=== PATIENT | female | born 1980 | race Caucasian/White ===

== ENCOUNTER 2017-04-09 17:35 | Observation (INO) | payer MEDICAID ==
[~2017-04-09] VITALS: Ht 177.8 cm; Wt 94.8 kg
--- NOTE | 2017-04-09 17:40 | NUR ---
Patient ambulated to bed 11. RN evaluating patient at bedside.
[2017-04-09 17:41] VITALS: BP 115/82
--- NOTE | 2017-04-09 17:58 | NUR ---
37 F BIB SIGNICANT OTHER FOR C/O VOMITING X APPROX 20 EPISODES SINCE LAST NIGHT WITH 10/10 "SHARP" NON-RADIATING BL LOWER BACK PAIN AND HEAD; DENIES TRAUMA OR ANY RECENT FALLS; LAST BM LAST WEEK; PT DENIES ANY BLOOD IN EMESIS;SKIN IS PINK/WARM/DRY; AOX4 WITH EVEN AND STEADY GAIT; RR ARE EVEN AND UNLABORED; PATIENT POSITIONED FOR COMFORT; BED DOWN. ER MD MADE AWARE OF PT STATUS.
[2017-04-09] MEDS ORDERED: KETOROLAC 30 MG/ML VIAL IVP ONE ×2 (18:00→20:10)
[2017-04-09] MEDS ORDERED: METOCLOPRAMIDE 10 MG/2 ML INJ VIAL IVP ONE (18:00)
[2017-04-09] MEDS ORDERED: NACL 0.9% 1,000 ML IV ONE (18:00)
[2017-04-09] MEDS ORDERED: MORPHINE SULFATE 4 MG/ML SYR IVP ONE (18:50)
--- NOTE | 2017-04-09 19:06 | NUR ---
EMENA ADMINISTERED PER ER MD MAHAJAN ORDER; PT TOLERATED WELL
--- NOTE | 2017-04-09 19:10 | NUR ---
Pt report given to Leonila LEE. Transfer of care at this time.
--- NOTE | 2017-04-09 19:25 | NUR ---
report received from ROSA SANTOS
--- NOTE | 2017-04-09 19:35 | NUR ---
PT HAD BM AT BEDSIDE COMMODE. ENEMA WITH GOOD EFFECT.
[2017-04-09] MEDS ORDERED: NACL 0.9% 500 ML IV ONE (20:08)
[2017-04-09] MEDS ORDERED: ONDANSETRON 4 MG/2 ML VIAL IVP ONE (20:10)
[2017-04-09 20:26] LABS: BASOPHILS # (AUTO) 0.5 K/uL (0.00-0.22); EOSINOPHILS # (AUTO) 0.1 K/uL (0-0.4); HEMATOCRIT 39.9 % (36-48); HEMOGLOBIN 12.9 g/dL (12.0-16.0); LYMPHOCYTES # (AUTO) 2.7 K/uL (2.5-16.5); MEAN CORPUSCULAR HEMOGLOBIN 29 pg (27-31); MEAN CORPUSCULAR HGB CONC 32 g/dL (33-37); MEAN CORPUSCULAR VOLUME 88 fL (80-94); MONOCYTES # (AUTO) 0.4 K/uL (0.8-1.0); NEUTROPHILS # (AUTO) 1.9 K/uL (1.8-7.7); PLATELET COUNT (AUTO) 310 K/uL (140-450); RED BLOOD CELL COUNT(AUTO) 4.52 MIL/uL (4.20-5.40); RED CELL DISTRIBUTION WIDTH 14.3 % (11.6-13.7); WHITE BLOOD COUNT (AUTO) 5.6 K/uL (4.8-10.8)
[2017-04-09 20:45] LABS: ANION GAP 11.7 (8-16); CARBON DIOXIDE 30.2 mmol/L (21-32); POTASSIUM 3.9 mmol/L (3.5-5.1)
[2017-04-09 20:51] LABS: ALBUMIN 3.9 g/dL (3.4-5.0); TOTAL BILIRUBIN 0.2 mg/dL (0.0-1.0)
[2017-04-09] MEDS: NACL 0.9% 1,000 ML IV SCH ×2 (21:50→22:15)
[2017-04-09] MEDS ORDERED: SODIUM PHOSPHATE 118 ML ENEM RC PRN (21:55)
[2017-04-09] MEDS ORDERED: ONDANSETRON 4 MG/2 ML VIAL IVP PRN (21:55)
[2017-04-09] MEDS ORDERED: HYDROcodone/APAP 5/325 MG 1 TAB TAB PO PRN ×2 (21:55)
[2017-04-09] MEDS ORDERED: ACETAMINOPHEN 650 MG SUPP RC PRN (21:55)
[2017-04-09] MEDS ORDERED: LACTULOSE 20 GM/30 ML UDC PO ONE (21:55)
[2017-04-09] MEDS ORDERED: BISACODYL 10 MG SUPP RC ONE (21:55)
[2017-04-09] MEDS ORDERED: cloNIDine 0.1 MG TAB PO PRN (21:55)
[2017-04-09] MEDS ORDERED: IPRATROPIUM 0.02% 0.5 MG/2.5 ML NEBU INH PRN (21:55)
[2017-04-09] MEDS ORDERED: MAGNESIUM OXIDE 400 MG TAB PO PRN (21:55)
[2017-04-09] MEDS ORDERED: ZOLPIDEM 5 MG TAB PO PRN (21:55)
[2017-04-09] MEDS ORDERED: MAG SULF 2000 MG/WATER PREMIX 50 ML IV PRN (21:55)
[2017-04-09] MEDS ORDERED: DOCUSATE SODIUM 250 MG GELCAP PO PRN (21:55)
[2017-04-09] MEDS ORDERED: ALBUTEROL 0.083% 2.5 MG/3 ML NEBU INH PRN (21:55)
[2017-04-09] MEDS ORDERED: ACETAMINOPHEN 325 MG TAB PO PRN (21:55)
[2017-04-09] MEDS ORDERED: diphenhydrAMINE 50 MG/ML VIAL IVP PRN (21:55)
[2017-04-09] MEDS ORDERED: BISACODYL 10 MG SUPP RC PRN (21:55)
[2017-04-09] MEDS ORDERED: ALUMINUM HYD/MAG/SIMETHICONE 30 ML UDC PO PRN (21:55)
[2017-04-09] MEDS ORDERED: POTASSIUM CHLORIDE 10 MEQ TABER PO PRN (21:55)
[2017-04-09] MEDS ORDERED: guaiFENesin DM 200/20 MG-10 ML 10 ML UDC PO PRN (21:55)
[2017-04-09] MEDS ORDERED: POTASSIUM CHLORIDE 40 MEQ, LIDOCAINE 1% 25 MG in NACL 0.9% 250 ML IV PRN (21:55)
[2017-04-09] MEDS ORDERED: LORazepam 2 MG/ML VIAL IVP PRN (21:55)
[2017-04-09 22:10] VITALS: BP 117/73
--- NOTE | 2017-04-09 22:10 | NUR ---
PATIENT ADMITTED WITH DEHYDRATION AND CONSTIPATION PATIENT IS AWAKE ALERT ORIENTED AND RESTING IN BED SKIN IS INTACT HAS MULTIPLE BODY TATTOES. ORIENTATION GIVEN ON ROOM AND CALL LIGHT SYSTEM WELL VISITING HOURS.PLAN OF CARE EXPLAINED TO THE PATIENT. CALL LIGHT WITHIN REACH WILL CONTINUE TO MONITOR.
--- NOTE | 2017-04-09 22:10 | NUR ---
Patient will be admitted to care of DR ELIAS. Admited to MED SURG. Will go to [id number]. Belongings list completed. Report to ROSA GONZALEZ.
--- NOTE | 2017-04-09 22:10 | NUR ---
[facility] COLLECTED AND SEND TO THE LAB.
--- NOTE | 2017-04-09 22:28 | NUR ---
I ADMINISTERED PATIENT MEDICATION ORDERED LACTULOSE AND DULCOLAX WILL ASESS EFFECTIVENESS.
[2017-04-09] MEDS: MORPHINE SULFATE 2 MG/ML SYR IVP PRN (22:44)
--- NOTE | 2017-04-09 22:44 | NUR ---
PATIENT WAS MEDICATED WITH MORPHINE 2MG IVP FOR SEVERE PAIN PATIENT STATES SHE IS HAVING PAIN TO HER LOWER BACK 10/ PATIENT DENIES ANY PAIN TO HER ABDOMEN.WILL CONTINUE TO MONITOR.
--- NOTE | 2017-04-09 23:59 | NUR ---
I CALLED MD RIGGINS FOR A DIET ORDER HE ORDERED CLEAR LIQUID DIET FOR THE PATIENT.
--- NOTE | 2017-04-10 00:49 | NUR ---
PATIENT IS CURRENTLY RESTING COMFORTABLY IN BED AT THIS TIME,IVF INFUSING WELL,AND PATIENT IS CURRENTLY TOLERATING CLEAR LIQUID DIET. PATIENT SAID SHE HAD A LOOSE BM A FEW MINUTES AGO.CALL LIGHT WITHIN REACH WILL CONTINUE TO MONITOR.
--- NOTE | 2017-04-10 02:00 | NUR ---
Patient's Plan of Care was discussed and reviewed with BITUMEN PLANT OPERATOR: LISA FIELDS.
--- NOTE | 2017-04-10 02:52 | NUR ---
PATIENT IS SLEEPING IN BED WILL CONTINUE TO MONITOR.
--- NOTE | 2017-04-10 05:46 | NUR ---
PATIENT STABLE SLEEPING IN BED.IVF INFUSING WELL IV SITE PATENT.
--- NOTE | 2017-04-10 06:45 | NUR ---
IV LEAKING TO LT AC SO IT WAS DISCONTINUED AND A NEW IV LINE WAS RESTARTED TO LEFT FOREARM G#22 AT FIRST ATTEMPT WITH GOOD BLOOD RETURN.IVF INFUSING WELL.CALL LIGHT WITHIN REACH.
[2017-04-10] MEDS: MORPHINE SULFATE 2 MG/ML SYR IVP PRN ×2 (06:56→12:21)
[2017-04-10 07:02] LABS: BASOPHILS # (AUTO) 0.2 K/uL (0.00-0.22); BASOPHILS % (AUTO) 2.3 % (0.0-2.0); EOSINOPHILS % (AUTO) 0.7 % (0.0-4.0); HEMATOCRIT 38.5 % (36-48); HEMOGLOBIN 12.6 g/dL (12.0-16.0); LYMPHOCYTES # (AUTO) 1.5 K/uL (2.5-16.5); LYMPHOCYTES % (AUTO) 20.9 % (20.5-51.1); MEAN CORPUSCULAR HEMOGLOBIN 29 pg (27-31); MEAN CORPUSCULAR HGB CONC 33 g/dL (33-37); MEAN CORPUSCULAR VOLUME 89 fL (80-94); MONOCYTES # (AUTO) 0.5 K/uL (0.8-1.0); MONOCYTES % (AUTO) 6.9 % (1.7-9.3); NEUTROPHILS # (AUTO) 4.7 K/uL (1.8-7.7); NEUTROPHILS % (AUTO) 69.2 % (42.2-75.2); PLATELET COUNT (AUTO) 287 K/uL (140-450); RED BLOOD CELL COUNT(AUTO) 4.33 MIL/uL (4.20-5.40); WHITE BLOOD COUNT (AUTO) 6.9 K/uL (4.8-10.8)
--- NOTE | 2017-04-10 07:40 | NUR ---
PATIENT IS CURRENTLY RESTING IN BED WATCHING TV,IVF INFUSING WELL.REPORT ENDORSED TO ROSA AGEE AT BEDSIDE ENDORSED TO ROSA AGEE THAT I RESTARTED IVF ON THE PATIENT AND THAT PATIENT WAS MEDICATED FOR PAIN.I ENDORSED ALSO THAT PATIENT HAD TWO BOWEL MOVEMENTS DURING THE NIGHT.ROSA AGEE WILL RESUME CARE.
--- NOTE | 2017-04-10 07:41 | NUR ---
RECEIVED REPORT FROM PATIENT SERVICE ASSOCIATE NURSE LISA AT BEDSIDE FOR CONTINUITY OF CARE. PT IS AWAKE AND ORIENTED. INTRODUCED SELF AND UPDATED BOARD. WILL CONTINUE WITH CURRENT PLAN OF CARE AND MONITOR PT.
[2017-04-10 07:43] LABS: ALBUMIN 3.5 g/dL (3.4-5.0); CARBON DIOXIDE 25.7 mmol/L (21-32); CREATININE 0.9 mg/dL (0.6-1.3); MAGNESIUM 1.6 mg/dL (1.8-2.4); POTASSIUM 3.7 mmol/L (3.5-5.1); TOTAL BILIRUBIN 0.5 mg/dL (0.0-1.0)
[2017-04-10 08:00] VITALS: BP 120/78
[2017-04-10] MEDS: NACL 0.9% 1,000 ML IV SCH (10:08)
--- NOTE | 2017-04-10 10:08 | NUR ---
IV BAG OF 1,000ML NS COMPLETE. STARTED NEW BAG OF NS 1,000ML AT 122ML/HR.
--- NOTE | 2017-04-10 10:31 | NUR ---
PATIENT HAS BEEN SCREENED AND CATEGORIZED HIGH NUTRITION RISK. PATIENT WILL BE SEEN WITHIN 1-2 DAYS OF ADMISSION. 04/10/17-04/11/[address]
--- NOTE | 2017-04-10 14:30 | NUR ---
CHECKED ON PT IN ROOM. PT'S FRIEND IS AT BEDSIDE. PT REPORTED HAVING WATERY STOOL. INFORMED PT TO REPORT IF ANY BRIGHT RED BLOOD IN STOOL IS OBSERVED. PT STATED SHE IS UNABLE TO EAT LUNCH DUE TO NAUSEA. DENIES VOMITING AND PAIN. WILL CONTINUE TO MONITOR.
--- NOTE | 2017-04-10 14:35 | NUR ---
ELLIOTT NOTE PATIENT STILL ON OBSERVATION STATUS. RECEIVED A CALL FROM [facility] # [phone] EXT [phone] REQUESTING FOR THE ER DR'S NOTES AND H&P TO BE FAXED TO [facility]. ER 'S NOTES AND H&P FAXED TO [facility] [phone] # [phone] ELLIOTT C[facility] EXT [phone].
[2017-04-10] MEDS ORDERED: ACET-2869 PO ×2 (15:16→15:18)
[2017-04-10] MEDS ORDERED: IBUP-2213 PO (15:19)
[2017-04-10] MEDS ORDERED: BISA5ECT45 PO (15:27)
[2017-04-10] MEDS ORDERED: DOCU-299 PO (15:30)
[2017-04-10] MEDS ORDERED: LACT10SO1 PO (15:31)
[2017-04-10] MEDS ORDERED: OMEP20TC12 PO (15:35)
[2017-04-10] MEDS ORDERED: ONDA4TAB PO (15:37)
[2017-04-10] MEDS ORDERED: PNEUMOCOCCAL VACCINE 23 MCG/0.5 ML VIAL IMVAC SCH (16:09)
--- NOTE | 2017-04-10 16:45 | NUR ---
1645 IV NS STOPPED.
--- NOTE | 2017-04-10 16:45 | NUR ---
PT D/C'D TO GO HOME. D/C INSTRUCTIONS GIVEN AND FORMS SIGNED. EDUCATION ON PRESCRIPTION GIVEN AND SIDE EFFECTS. PT VERBALIZED UNDERSTANDING. PNA VACCINE GIVEN. PT TOLERATED WELL. IV REMOVED FROM LEFT FA 22#. IV CATHETER TIP INTACT. DRESSING APPLIED AND PRESSURE TO SITE. NO BLEEDING NOTED. ID BAND REMOVED. PT CHANGED IN OWN CLOTHES AND LEFT WITH ALL PERSONAL BELONGINGS. PT LEFT UNIT VIA WHEELCHAIR ACCOMPANIED BY SIGNIFICANT OTHER AND RN. PT LEFT IN STABLE CONDITION.
[2017-04-11] MEDS ORDERED: TOPIRAMATE 25 MG TAB PO SCH (09:00)
[2017-04-11] MEDS ORDERED: QUEtiapine FUMARATE 25 MG TAB PO SCH (09:00)
== END 2017-04-10 16:45 | disposition home or self-care (01) ==
LOC: MED 17:35 → MTU 21:50
PROVIDERS: ADMIT Hospitalist; ATTEND Hospitalist
DX: K59.00 Constipation, unspecified (principal); F31.9 Bipolar disorder, unspecified
CPT/HCPCS: 36415; 80053; 83690; 83735; 85025; 87081; 90471; 90732; 96361; 96374; 96375; 96376; 99285; G0378; J1885; J2270; J2405; J2765; J7030

== ENCOUNTER 2017-07-03 17:02 | Emergency (ER) | payer MEDICAID ==
[~2017-07-03] VITALS: Ht 177.8 cm; Wt 99.8 kg
[~2017-07-03 17:02] MED LIST: ACET-2869 PO; BISA5ECT45 PO; DOCU-299 PO; IBUP-2213 PO; LACT10SO1 PO; OMEP20TC12 PO; ONDA4TAB PO
[2017-07-03 17:24] VITALS: BP 133/80
[2017-07-03] MEDS ORDERED: NACL 0.9% 1,000 ML IV SCH (18:30)
[2017-07-03] MEDS ORDERED: FAMOTIDINE 20 MG/2 ML VIAL IVP ONE (18:30)
[2017-07-03] MEDS ORDERED: KETOROLAC 30 MG/ML VIAL IVP ONE (18:30)
[2017-07-03] MEDS ORDERED: ONDANSETRON 4 MG/2 ML VIAL IVP ONE (18:30)
[2017-07-03 18:41] LABS: BASOPHILS # (AUTO) 0.3 K/uL (0.00-0.22); EOSINOPHILS # (AUTO) 0.1 K/uL (0-0.4); HEMATOCRIT 42.1 % (36-48); HEMOGLOBIN 13.6 g/dL (12.0-16.0); LYMPHOCYTES # (AUTO) 1.7 K/uL (2.5-16.5); MEAN CORPUSCULAR HEMOGLOBIN 29 pg (27-31); MEAN CORPUSCULAR HGB CONC 32 g/dL (33-37); MEAN CORPUSCULAR VOLUME 91 fL (80-94); MONOCYTES # (AUTO) 0.4 K/uL (0.8-1.0); NEUTROPHILS # (AUTO) 2.2 K/uL (1.8-7.7); PLATELET COUNT (AUTO) 285 K/uL (140-450); RED BLOOD CELL COUNT(AUTO) 4.62 MIL/uL (4.20-5.40); RED CELL DISTRIBUTION WIDTH 15.2 % (11.6-13.7); WHITE BLOOD COUNT (AUTO) 4.7 K/uL (4.8-10.8)
[2017-07-03 18:43] LABS: APPEARANCE,URINE CLEAR (CLEAR); BILIRUBIN,URINE NEGATIVE (NEGATIVE); BLOOD, URINE NEGATIVE (NEGATIVE); COLOR,URINE YELLOW (YELLOW); LEUKOCYTE ESTERASE ,URINE NEGATIVE (NEGATIVE); NITRITE, URINE NEGATIVE (NEGATIVE); PH,URINE 6.5 (5.0-9.0); UGLUCOSE NEGATIVE (NEGATIVE)
--- NOTE | 2017-07-03 18:50 | NUR ---
37/F C/O CONSTIPATION AND ABDOMINAL PAIN RADIATING TO BACK X11D, VOMITING TODAY. DENIES N/V/D; SKIN IS PINK/WARM/DRY; AAOX4 WITH EVEN AND STEADY GAIT; LUNGS CLEAR BL; PT DENIES ANY FEVER, CP, SOB, OR COUGH AT THIS TIME; PATIENT STATES PAIN OF 10/10 AT THIS TIME; PATIENT POSITIONED FOR COMFORT; HOB ELEVATED; BEDRAILS UP X2; BED DOWN. ER MD MADE AWARE OF PT STATUS.
[2017-07-03 19:08] LABS: ANION GAP 14.2 (8-16); CARBON DIOXIDE 25.1 mmol/L (21-32); POTASSIUM 3.3 mmol/L (3.5-5.1)
[2017-07-03 19:09] LABS: ALBUMIN 3.8 g/dL (3.4-5.0); CREATININE 1.1 mg/dL (0.6-1.3); TOTAL BILIRUBIN 0.3 mg/dL (0.0-1.0)
--- NOTE | 2017-07-03 19:10 | NUR ---
Pt report given to ROSA NEWMAN. Transfer of care at this time.
[2017-07-03] MEDS ORDERED: LACTULOSE 20 GM/30 ML UDC PO ONE (19:45)
[2017-07-03] MEDS ORDERED: POTASSIUM CHLORIDE 20% 40 MEQ/15 ML UDC PO ONE (19:50)
[2017-07-03] MEDS ORDERED: LACTULOSE 20 GM/30 ML UDC ONE (20:52)
[2017-07-03] MEDS ORDERED: MAGNESIUM HYDROXIDE 2400 MG/30 ML UDC PO ONE (21:15)
--- NOTE | 2017-07-03 21:48 | NUR ---
Note yoana in EDM - 07/03/17 at 2151 by JONO ERROR NOTE ON NS ADMINISTRATION. X1, 1L BAG OF NS ADMINISTERED FROM 193 TO 2014. DUPLICATE ADMINISTARTOIN ON AUG WITH ANOTHER ADMINISTRATOIN OF NS AT 1931. PT RECIEVED ONLY 1 L OF NS.
--- NOTE | 2017-07-03 22:30 | NUR ---
IV removed, catheter intact and site benign. Applied folded 4x4 gauze and tape to stop bleeding.
[2017-07-03 22:31] VITALS: BP 122/79
--- NOTE | 2017-07-03 22:32 | NUR ---
Patient discharged with v/s stable. Written and verbal after care instructions given and explained. Patient alert, oriented and verbalized understanding of instructions. Ambulatory with steady gait. All questions addressed prior to discharge. ID band removed. Patient advised to follow up with PMD. Rx of LACTULOSE 10G/15ML given. Patient educated on indication of medication including possible reaction and side effects. Opportunity to ask questions provided and answered.
== END 2017-07-03 22:32 | disposition home or self-care (01) ==
LOC: MED 17:02
DX: K59.00 Constipation, unspecified (principal); J45.909 Unspecified asthma, uncomplicated
CPT/HCPCS: 36415; 74176; 80053; 81003; 82150; 83690; 84703; 85025; 96361; 96374; 96375; 99285; J1885; J2405; J3490; J7030

== ENCOUNTER 2017-07-07 15:52 | Emergency (ER) | payer MEDICAID ==
[~2017-07-07] VITALS: Ht 177.8 cm; Wt 99.8 kg
[2017-07-07 16:16] VITALS: BP 122/77
[2017-07-07] MEDS ORDERED: LATUDA 80 MG TABLET (16:19)
[2017-07-07] MEDS ORDERED: CONSTULOSE (16:19)
[2017-07-07] MEDS ORDERED: NALTREXONE 50 MG TABLET (16:19)
[2017-07-07] MEDS ORDERED: ZONISAMIDE 100 MG CAPSULE (16:19)
--- NOTE | 2017-07-07 19:34 | NUR ---
PT AMBULATED TO BED 01
--- NOTE | 2017-07-07 19:57 | NUR ---
PT PRESENTS W/ N/V AND NOT HAVING A "NORMAL" BM FOR 16 DAYS. PT WAS SEEN BY PCP PROVIDER TODAY AND REFERRED TO ER FOR FURTHER EVALUATION. PT WAS SEEN IN ED LAST MONDAY FOR SAME SYMPTOMS AND D/C W/ LACTULOSE, LAXATIVES, AND ENEMAS. PT STATES SHE HAS BEEN COMPLIANT W/ MEDS BUT HAS HAD NO RELIEF. PT STATES SHE HAD A VERY SMALL BM 2 DAYS AGO THAT WAS SOFT AND BROWN AND SIZE OF "TOOTSIE ROLL". ABD IS FIRM, ROUND, TENDER, ACTIVE BS X4. PT STATES SHE HAS N/V WHEN SHE EATS AND HAS NOT ATEN TODAY. PT TOOK RX OF LACTULOSE THIS AM. PAIN 10/10 TO ABD,SHARP, RADIATING TO BACK.
[2017-07-07] MEDS ORDERED: MAGNESIUM CITRATE 300 ML BTL PO ONE ×2 (20:40→21:35)
[2017-07-07] MEDS ORDERED: KETOROLAC 30 MG/ML VIAL IVP ONE (20:40)
[2017-07-07] MEDS ORDERED: NACL 0.9% 1,000 ML IV ONE (20:40)
[2017-07-07] MEDS ORDERED: ONDANSETRON 4 MG/2 ML VIAL IVP ONE (20:40)
[2017-07-07 21:05] LABS: BASOPHILS # (AUTO) 0.4 K/uL (0.00-0.22); EOSINOPHILS # (AUTO) 0.1 K/uL (0-0.4); LYMPHOCYTES # (AUTO) 2.2 K/uL (2.5-16.5); MEAN CORPUSCULAR HEMOGLOBIN 29 pg (27-31); MEAN CORPUSCULAR HGB CONC 32 g/dL (33-37); MEAN CORPUSCULAR VOLUME 91 fL (80-94); MONOCYTES # (AUTO) 0.4 K/uL (0.8-1.0); PLATELET COUNT (AUTO) 327 K/uL (140-450); RED BLOOD CELL COUNT(AUTO) 4.09 MIL/uL (4.20-5.40); RED CELL DISTRIBUTION WIDTH 15.5 % (11.6-13.7); WHITE BLOOD COUNT (AUTO) 5.1 K/uL (4.8-10.8)
[2017-07-07] MEDS ORDERED: PROCHLORPERAZINE 10 MG/2 ML VIAL IVP ONE (21:10)
--- NOTE | 2017-07-07 21:10 | NUR ---
PT VOMITING AFTER GIVEN MAG. CITRATE , ER NOTIFIED, WILL GIVE COMPAZINE.
--- NOTE | 2017-07-07 21:13 | NUR ---
PT VOMITED ABOUT 250CC OF CLEAR FLUID. ER NOTIFIED.
[2017-07-07 21:23] LABS: ANION GAP 13.6 (8-16); POTASSIUM 3.6 mmol/L (3.5-5.1)
[2017-07-07 21:28] LABS: ALBUMIN 3.6 g/dL (3.4-5.0); TOTAL BILIRUBIN 0.2 mg/dL (0.0-1.0)
--- NOTE | 2017-07-07 21:54 | NUR ---
PT GIVEN MAG CITRATE AND INSTRUCTED TO DRINK SLOWLY OVER THE NEXT 20 MIN.
--- NOTE | 2017-07-07 22:10 | NUR ---
PT STATES SHE USED THE RESTROOM AND HAD 4 SMALL BM.
--- NOTE | 2017-07-07 22:11 | NUR ---
PT USED RESTROOM AGAIN W/ "SMALL" AMOUNT OF STOOL AGAIN.
[2017-07-07 23:15] VITALS: BP 117/74
--- NOTE | 2017-07-07 23:15 | NUR ---
Patient discharged with v/s stable. Written and verbal after care instructions given and explained. Patient alert, oriented and verbalized understanding of instructions. Ambulatory with steady gait. All questions addressed prior to discharge. ID band removed. Patient advised to follow up with PMD. Rx of ZOFRAN, MAG. CITRATE given. Patient educated on indication of medication including possible reaction and side effects. Opportunity to ask questions provided and answered.
== END 2017-07-07 23:15 | disposition home or self-care (01) ==
LOC: MED 15:52
DX: K59.00 Constipation, unspecified (principal); J45.909 Unspecified asthma, uncomplicated; Z79.899 Other long term (current) drug therapy
CPT/HCPCS: 36415; 74022; 80053; 81002; 81025; 82150; 83690; 85025; 96361; 96374; 96375; 99285; J0780; J1885; J2405; J7030

== ENCOUNTER 2017-07-08 16:37 | Inpatient (IN) | payer MEDICAID ==
[~2017-07-08] VITALS: Ht 177.8 cm; Wt 96.6 kg
[~2017-07-08 16:37] MED LIST changes: +CONSTULOSE; +LATUDA 80 MG TABLET; +NALTREXONE 50 MG TABLET; +ZONISAMIDE 100 MG CAPSULE
[2017-07-08 16:53] VITALS: BP 106/66
[2017-07-08] MEDS ORDERED: MAGNESIUM CITRATE 300 ML BTL PO ONE (17:00)
--- NOTE | 2017-07-08 19:32 | NUR ---
To bed 12.
--- NOTE | 2017-07-08 20:13 | NUR ---
37Y/F PT. PRESENTS TO ED WITH C/O CHRONIC CONSTIPATION. PT. WAS SEEN BY ER MD YESTERDAY FOR THE SAME S/SX. STILL CONSTIPATED. AAO X4, AMBULATORY WITH STEDAY GAIT. RESPIRTAIONS ROOM AIR, EVEN AND UNLABORED. ABDOMEN SOFT, NO TENDER, HYPOACTIVE BS X4. C/O PAIN 03/21. VSS ER MD MADE AWARE OF PT. STATUS.
[2017-07-08] MEDS ORDERED: ONDANSETRON 4 MG/2 ML VIAL IVP ONE (21:00)
[2017-07-08] MEDS ORDERED: NACL 0.9% 1,000 ML IV ONE (21:00)
[2017-07-08] MEDS ORDERED: KETOROLAC 30 MG/ML VIAL IVP ONE (21:00)
--- NOTE | 2017-07-08 21:00 | NUR ---
Patient being evaluated by at bedside.
[2017-07-08 21:30] LABS: ANION GAP 11.4 (8-16); CARBON DIOXIDE 27.4 mmol/L (21-32); CREATININE 1.1 mg/dL (0.6-1.3); POTASSIUM 3.8 mmol/L (3.5-5.1)
[2017-07-08 21:35] LABS: ALBUMIN 3.5 g/dL (3.4-5.0); TOTAL BILIRUBIN 0.2 mg/dL (0.0-1.0)
[2017-07-08 21:37] LABS: HEMATOCRIT 36.6 % (36-48); HEMOGLOBIN 11.9 g/dL (12.0-16.0); MEAN CORPUSCULAR HEMOGLOBIN 30 pg (27-31); MEAN CORPUSCULAR HGB CONC 33 g/dL (33-37); MEAN CORPUSCULAR VOLUME 91 fL (80-94); PLATELET COUNT (AUTO) 323 K/uL (140-450); RED CELL DISTRIBUTION WIDTH 15.1 % (11.6-13.7); WHITE BLOOD COUNT (AUTO) 4.3 K/uL (4.8-10.8)
[2017-07-08 21:45] LABS: LYMPHOCYTES % (MANUAL) 45 % (20-46); MONOCYTES % (MANUAL) 8 % (5-12)
[2017-07-08] MEDS ORDERED: NACL 0.9% 1,000 ML IV SCH (22:26)
[2017-07-08] MEDS ORDERED: ONDANSETRON 4 MG/2 ML VIAL IVP PRN (22:30)
[2017-07-08] MEDS ORDERED: ACETAMINOPHEN 325 MG TAB PO PRN (22:30)
--- NOTE | 2017-07-08 22:45 | NUR ---
Patient will be admitted to care of . Admited to TELE. Will go to [id number]. Belongings list completed. Report to ROSA ACUNA.
--- NOTE | 2017-07-08 22:50 | NUR ---
ADMITTED PATIENT TO THE TELE UNIT, AWAKE ALERT ORIENTED X4, NO S/S OF DISTRESS NOTED, RESPIRATION EVEN AND UNLABORED, IV PATENT AND INTACT, FLUSHED WITH 10CC NS. TELE MONITOR PLACED ON PATIENT, PLAN OF CARE DISCUSSED AND ORIENTED TO THE ROOM, PATIENT VERBALIZED UNDERSTANDING, CALL LIGHT WITHIN REACH, SAFETY MEASURE ENSURED, WILL CONTINUE TO MONITOR.
--- NOTE | 2017-07-08 23:15 | NUR ---
REFUSED SCD, PATIENT STATED," I CAN WALK."
[2017-07-08] MEDS: HYDROcodone/APAP 7.5/325 MG 1 TAB PO PRN (23:33)
--- NOTE | 2017-07-08 23:35 | NUR ---
UPON ASSESSMENT, PATIENT STATED," I LIVE IN A PENITENTIARY, BUT I HAVE MY OWN INSURANCE CLAIMS SPECIALIST, I DON'T NEED ANY BOOSTER PUMP OILER OR RESOURCES INFORMATION. MY INSURANCE CLAIMS SPECIALIST IS WORKING ON MY STUFF."
[2017-07-09] VITALS: BP 124/71
[2017-07-09 00:13] LABS: CHOL/HDL RATIO 2.2 (1-4.5)
[2017-07-09 00:26] LABS: PROTHROMBIN TIME 9.7 secs (10.8-13.4)
[2017-07-09 00:37] LABS: MAGNESIUM 2.6 mg/dL (1.8-2.4)
[2017-07-09] MEDS: SENNA 8.6 MG TAB PO SCH ×2 (00:45→08:25)
--- NOTE | 2017-07-09 00:45 | NUR ---
SOAP RUBY ENEMA GIVEN, PATIENT TOLERATED WELL, STATED NO URGE FOR BOWEL MOVEMENT AT THIS MOMENT. WILL CONTINUE TO MONITOR.
[2017-07-09 01:30] LABS: FREE T4 (FREE THYROXINE) 0.73 ng/dL (0.76-1.46); THYROID STIMULATING HORMONE 2.1 uIU/mL (0.34-3.74)
[2017-07-09] MEDS: NACL 0.45% 1,000 ML IV SCH ×3 (01:37→16:29)
[2017-07-09] MEDS ORDERED: SENNA 8.6 MG TAB PO SCH (01:40)
--- NOTE | 2017-07-09 01:50 | NUR ---
STILL NO URGE FOR BOWEL MOVEMENT AND NO FLUIDS COMING OUT EITHER, ENCOURAGED PATIENT TO SIT ON THE TOILET.
--- NOTE | 2017-07-09 02:20 | NUR ---
SENNA WAS ADMINISTERED, PATIENT TOLERATED WELL. STILL NO URGE FOR BOWEL MOVEMENT, ENCOURAGED PATIENT TO TRY TO SIT ON THE TOILET ONE MORE TIME.
--- NOTE | 2017-07-09 03:18 | NUR ---
PATIENT STATED," THERE WAS SOME BROWN LIQUID COMING OUT, IT WAS LIKE DIARRHEA." MADE DR. SOLORIO AWARE.
[2017-07-09 04:00] VITALS: BP 116/70
--- NOTE | 2017-07-09 04:10 | NUR ---
CALLED RADIOLOGY DEPARTMENT, INFORMED BY JOCELYN THAT HE WAS BUSY IN THE ER, HE WOULD COME TO DO THE XRAY SOON POSSIBLE.
--- NOTE | 2017-07-09 06:22 | NUR ---
PATIENT IS SLEEPING, NO S/S OF DISTRESS NOTED, RESPIRATION EVEN AND UNLABORED, CALL LIGHT WITHIN REACH, SAFETY MEASURE ENSURED, WILL CONTINUE TO MONITOR.
[2017-07-09 07:08] LABS: HEMATOCRIT 35.2 % (36-48); HEMOGLOBIN 11.2 g/dL (12.0-16.0); MEAN CORPUSCULAR HEMOGLOBIN 29 pg (27-31); MEAN CORPUSCULAR HGB CONC 32 g/dL (33-37); MEAN CORPUSCULAR VOLUME 91 fL (80-94); PLATELET COUNT (AUTO) 311 K/uL (140-450); RED BLOOD CELL COUNT(AUTO) 3.85 MIL/uL (4.20-5.40); RED CELL DISTRIBUTION WIDTH 15.7 % (11.6-13.7)
--- NOTE | 2017-07-09 07:18 | NUR ---
ENDORSED PLAN OF CARE TO DAY SHIFT RN, PATIENT IS IN STABLE CONDITION, NO S/S OF DISTRESS NOTED.
--- NOTE | 2017-07-09 07:20 | NUR ---
RECEIVED PT IN BED. AWAKE. ALERT ORIENTEDX4. NO SOB NOTED. PT AMBULATORY. PT VERBALIZED SHE HAD 2 WATERY BOWEL MOVEMENT SINCE LAST NIGHT. SAFETY PRECAUTION IN PLACE. CALL LIGHT WITHIN REACH.
[2017-07-09 07:42] LABS: APPEARANCE,URINE CLOUDY (CLEAR); BILIRUBIN,URINE NEGATIVE (NEGATIVE); BLOOD, URINE NEGATIVE (NEGATIVE); COLOR,URINE YELLOW (YELLOW); LEUKOCYTE ESTERASE ,URINE NEGATIVE (NEGATIVE); NITRITE, URINE NEGATIVE (NEGATIVE); UGLUCOSE NEGATIVE (NEGATIVE)
[2017-07-09 07:53] VITALS: BP 115/63
[2017-07-09 07:57] LABS: LYMPHOCYTES % (MANUAL) 46 % (20-46)
[2017-07-09 07:58] LABS: EOSINOPHILS % (MANUAL) 3 % (0-4); MONOCYTES % (MANUAL) 9 % (5-12)
[2017-07-09 07:59] LABS: MAGNESIUM 2.4 mg/dL (1.8-2.4); PHOSPHORUS 3.1 mg/dL (2.5-4.9)
[2017-07-09] MEDS: PANTOPRAZOLE 40 MG INJ VIAL IVP SCH (08:25)
[2017-07-09] MEDS: DOCUSATE SODIUM 100 MG GELCAP PO SCH ×2 (08:25→21:42)
[2017-07-09] MEDS: HYDROcodone/APAP 7.5/325 MG 1 TAB PO PRN (08:26)
[2017-07-09 08:27] LABS: RBC,URINE NONE SEEN /HPF (0-5); WBC,URINE 0-5 (RARE) /HPF (0-5)
[2017-07-09 08:28] LABS: TRIPLE PHOSPHATE CRYSTAL,UR 0-3 /HPF (None Seen)
[2017-07-09 08:49] LABS: BARBITURATE, URINE NEGATIVE ng/ml (NEG <=200); BENZODIAZEPINE, URINE NEGATIVE ng/mL (NEG <=200); CANNABINOID, URINE NEGATIVE ng/mL (NEG <=50); COCAINE, URINE NEGATIVE ng/mL (NEG <=300); OPIATE, URINE NEGATIVE ng/mL (NEG <=2000); PHENCYCLIDINE SCREEN,URINE NEGATIVE ng/mL (NEG <=25)
--- NOTE | 2017-07-09 10:05 | NUR ---
PATIENT HAS BEEN SCREENED AND CATEGORIZED MODERATE NUTRITION RISK. PATIENT WILL BE SEEN WITHIN 3-5 DAYS OF ADMISSION. 07/11/17 - 07/13/17 SONIA GRADY MBA, RD
[2017-07-09] MEDS: SIMETHICONE 80 MG TAB.CHEW PO PRN ×3 (10:18→21:41)
--- NOTE | 2017-07-09 10:42 | NUR ---
PT VERBALIZED SHE ALREADY HAD WATERY BOWEL MOVEMENT. BROWN IN COLOR. DR. GAUTHIER AND THE RESIDENTS CAME TO SEE PT. PT COMPLAINS OF HAVING GAS MEDICATED PRN MYLICON ORDERED.
[2017-07-09 11:51] VITALS: BP 121/73
--- NOTE | 2017-07-09 13:51 | NUR ---
ABEL FROM X-RAY DEPT PICKED UP PT FOR XR SMALL BOWEL FOLLOW THROUGH. PT NO SOB NOTED. DENIES ANY PAIN OR DISCOMFORT AT THIS TIME. PROVIDED WITH TICKET TO RIDE.
--- NOTE | 2017-07-09 15:36 | NUR ---
CLARIFIED WITH MORTAR MIXER DILL IF PT CAN TAKE MYLICON PO SINCE PT VERBALIZED THAT SHE IS BECOMING GASSY AGAIN, BUT IS NOT YET DONE WITH THE SMALL BOWEL FOLLOW THROUGH PROCEDURE. PER DILL ITS OK TO TAKE MEDICATION.
[2017-07-09 15:45] VITALS: BP 111/67
--- NOTE | 2017-07-09 18:37 | NUR ---
PT KEPT CLEAN, DRY AND COMFORTABLE. NEEDS ATTENDED. NO SOB NOTED. DENIES ANY PAIN OR DISCOMFORT AT THIS TIME. PT TOLERATED WELL HER MEALS. POSITIVE BOWEL MOVEMENT NOTED ON SHIFT. DONE WITH XR SMALL BOWEL FOLLOW THROUGH, AWAITING RESULT. WILL ENDORSE TO NEXT SHIFT. PT ON STABLE, CONDITION. FOR CONTINUITY OF CARE.
--- NOTE | 2017-07-09 19:25 | NUR ---
RECEIVED REPORT FROM DAY SHIFT RN, PATIENT RESTING IN BED, WATCHING TV, AWAKE ALERT ORIENTED X4, NO S/S OF DISTRESS NOTED, RESPIRATION EVEN AND UNLABORED, IV PATENT AND INTACT, INFUSING 1/2NS AT 130ML/HR, CALL LIGHT WITHIN REACH, SAFETY MEASURE ENSURED, WILL CONTINUE TO MONITOR.
[2017-07-09 19:27] VITALS: BP 108/70
--- NOTE | 2017-07-09 22:00 | NUR ---
STATED," THE IV HURTS ME SO MUCH." UPON ASSESSMENT, IV INFILTRATED, STOPPED THE IV PUMP. WILL START A NEW IV.
--- NOTE | 2017-07-09 22:17 | NUR ---
STARTED NEW IV 22G, ON LT HAND, PATIENT TOLERATED WELL. OLD IV CATHETER TAKEN OUT, TIP INTACT, NO ACTIVE BLEEDING NOTED, WILL CONTINUE TO MONITOR.
[2017-07-10] VITALS: BP 100/55
--- NOTE | 2017-07-10 00:05 | NUR ---
PATIENT WAS SLEEPING, EASY TO AROUSE, VITAL SIGNS STABLE, RESPIRATION EVEN AND UNLABORED, NO S/S OF DISTRESS NOTED, CALL LIGHT WITHIN REACH, SAFETY MEASURE ENSURED, WILL CONTINUE TO MONITOR.
[2017-07-10] MEDS: NACL 0.45% 1,000 ML IV SCH ×2 (00:11→07:53)
--- NOTE | 2017-07-10 02:54 | NUR ---
NO CHANGE IN CONDITION, PATIENT IS SLEEPING, RESPIRATION EVEN AND UNLABORED, NO S/S OF DISTRESS NOTED, CALL LIGHT WITHIN REACH, SAFETY MEASURE ENSURED, WILL CONTINUE TO MONITOR.
[2017-07-10 04:00] VITALS: BP 111/67
[2017-07-10 06:37] LABS: HEMATOCRIT 34.4 % (36-48); HEMOGLOBIN 10.9 g/dL (12.0-16.0); MEAN CORPUSCULAR HEMOGLOBIN 29 pg (27-31); MEAN CORPUSCULAR HGB CONC 32 g/dL (33-37); MEAN CORPUSCULAR VOLUME 92 fL (80-94); PLATELET COUNT (AUTO) 295 K/uL (140-450); RED BLOOD CELL COUNT(AUTO) 3.75 MIL/uL (4.20-5.40); RED CELL DISTRIBUTION WIDTH 14.9 % (11.6-13.7)
--- NOTE | 2017-07-10 06:47 | NUR ---
PATIENT IS SLEEPING, RESPIRATION EVEN AND UNLABORED, NO S/S OF DISTRESS NOTED, CALL LIGHT WITHIN REACH, SAFETY MEASURE ENSURED, WILL CONTINUE TO MONITOR.
[2017-07-10 06:58] LABS: ANION GAP 13.3 (8-16); POTASSIUM 4.3 mmol/L (3.5-5.1)
[2017-07-10 07:02] LABS: MAGNESIUM 1.8 mg/dL (1.8-2.4); PHOSPHORUS 3.9 mg/dL (2.5-4.9)
--- NOTE | 2017-07-10 07:23 | NUR ---
ENDORSED PLAN OF CARE TO DAY SHIFT RN, PATIENT IS IN STABLE CONDITION, NO S/S OF DISTRESS.
--- NOTE | 2017-07-10 07:26 | NUR ---
RECEIVED PT IN BED. AWAKE. ALERT ORIENTEDX4. NO SOB NOTED. DENIES ANY PAIN OR DISCOMFORT AT THIS TIME. PT AMBULATORY. SAFETY PRECAUTION IN PLACE. CALL LIGHT WITHIN REACH.
[2017-07-10 07:47] VITALS: BP 115/73
[2017-07-10] MEDS: PANTOPRAZOLE 40 MG INJ VIAL IVP SCH (08:13)
[2017-07-10] MEDS: SENNA 8.6 MG TAB PO SCH (08:17)
[2017-07-10] MEDS: DOCUSATE SODIUM 100 MG GELCAP PO SCH (08:17)
--- NOTE | 2017-07-10 08:17 | NUR ---
PT REFUSED DUE STOOL SOFTENER MEDICATION DUE TO PT VERBALIZED SHE IS HAVING WATERY STOOLS
[2017-07-10 08:42] LABS: EOSINOPHILS % (MANUAL) 5 % (0-4); LYMPHOCYTES % (MANUAL) 38 % (20-46); MONOCYTES % (MANUAL) 5 % (5-12)
[2017-07-10] MEDS ORDERED: SIME80CT27 PO (09:12)
--- NOTE | 2017-07-10 09:31 | NUR ---
CM NOTE INITIAL REVIEW FAXED TO [facility] [phone] PH# [phone] AND TO [facility] [phone] PH# [phone] [facility] [id number]
--- NOTE | 2017-07-10 10:15 | NUR ---
DISCHARGE INSTRUCTIONS AND HEALTH TEACHINGS GIVEN AND EXPLAINED TO PT. REMINDED TO FOLLOW UP WITH PCP TOMORROW SCHEDULED ON THE DISCHARGE PAPERS. PT VERBALIZED UNDERSTANDING AND SIGNED DISCHARGE PAPERS. SIGNIFICANT OTHER DIONISIO WITH PT. AND PT CURRENTLY LIVES WITH HER. IV CANNULA REMOVED AND INTACT. NAME ARMBAND REMOVED. TELEMONITOR REMOVED. NO SOB NOTED. DENIES ANY PAIN OR DISCOMFORT AT THIS TIME. PT WHEELED OUT ASSISTED BY HOLLOW HANDLE BENCH WORKER GOING TO THE HOSPITAL PARKING LOT TO THEIR PRIVATE OWNED VEHICLE. PT DISCHARGED ON STABLE CONDITION.
== END 2017-07-10 10:15 | disposition home or self-care (01) | DRG 247 ==
LOC: MED 16:37 → MTU 22:31
PROVIDERS: ADMIT Family Medicine; ATTEND Family Medicine
DX: K56.41 Fecal impaction (principal); E87.0 Hyperosmolality and hypernatremia; E87.8 Other disorders of electrolyte and fluid balance, not elsewhere classified; D64.9 Anemia, unspecified; F31.9 Bipolar disorder, unspecified; E83.41 Hypermagnesemia; E86.0 Dehydration; K76.0 Fatty (change of) liver, not elsewhere classified; J45.909 Unspecified asthma, uncomplicated; Z59.0 Homelessness
CPT/HCPCS: 36415; 71045; 74018; 74250; 76700; 80048; 80053; 80305; 81001; 82140; 82150; 82607; 82728; 82746; 83036; 83540; 83690; 83735; 83880; 84100; 84439; 84443; 84479; 84484; 85025; 85045; 85610; 85730; 87081; 96361; 96374; 96375; 99285; C9113; J1885; J2405; J7030; Q0092

== ENCOUNTER 2017-07-19 18:16 | Emergency (ER) | payer MEDICAID ==
[~2017-07-19] VITALS: Ht 180.3 cm; Wt 90.7 kg
[~2017-07-19 18:16] MED LIST changes: +SIME80CT27 PO
[2017-07-19 18:59] VITALS: BP 135/65
--- NOTE | 2017-07-19 19:10 | NUR ---
PATIENT AMBULATED TO ER BED 11.
--- NOTE | 2017-07-19 19:12 | NUR ---
PATIENT IS A 37 Y/O FEMALE WHO PRESENTS TO THE ED C/O ABD PAIN. PT STATES, "MY CHEST HURTS AND MY MY STOMACH HAS BEEN HURTING." PT REPORTS 10/10 POKING RIGHT LOWER ABD PAIN THAT DOES NOT RADIATE. PT DENIES CP, SOB, REPORTS VOMITING DENIES NAUSEA/DIARRHEA. PT AAOX4, RR EVEN/UNLABORED. PT REPOSITIONED FOR COMFORT, BED IN LOWEST POSITION. ER MD DR. WESLEY NOTIFIED. WILL CONTINUE TO MONITOR. Addendum: 07/19/17 at 1932 by MEDDCV PATIENT IS A 37 Y/O FEMALE WHO PRESENTS TO THE ED C/O ABD PAIN. PT STATES, "MY CHEST HURTS AND MY MY STOMACH HAS BEEN HURTING." PT REPORTS 10/10 POKING RIGHT LOWER ABD PAIN THAT DOES NOT RADIATE. PT REPORTS CHEST PAIN. PT DENIES CP, SOB, REPORTS VOMITING DENIES NAUSEA/DIARRHEA. PT AAOX4, RR EVEN/UNLABORED. PT REPOSITIONED FOR COMFORT, BED IN LOWEST POSITION. ER MD DR. WESLEY NOTIFIED. WILL CONTINUE TO MONITOR.
[2017-07-19] MEDS ORDERED: KETOROLAC 60 MG/2 ML VIAL IM ONE (20:50)
--- NOTE | 2017-07-19 21:38 | NUR ---
Patient discharged with v/s stable. Written and verbal after care instructions given and explained. Patient alert, oriented and verbalized understanding of instructions. Ambulatory with steady gait. All questions addressed prior to discharge. ID band removed. Patient advised to follow up with PMD. Rx of MOTRIN AND NORCO given. Patient educated on indication of medication including possible reaction and side effects. Opportunity to ask questions provided and answered.
[2017-07-19 21:39] VITALS: BP 129/72
== END 2017-07-19 21:38 | disposition home or self-care (01) ==
LOC: MED 18:16
DX: R10.11 Right upper quadrant pain (principal); J45.909 Unspecified asthma, uncomplicated; Z79.899 Other long term (current) drug therapy
CPT/HCPCS: 81002; 81025; 96372; 99283; J1885

== ENCOUNTER 2018-05-13 14:56 | Emergency (ER) | payer MEDICAID ==
[~2018-05-13] VITALS: Ht 177.8 cm; Wt 99.8 kg
[~2018-05-13 14:56] MED LIST changes: -ACET-2869 PO; +HYDR-5122 PO
[2018-05-13 15:04] VITALS: BP 138/81
--- NOTE | 2018-05-13 15:30 | NUR ---
C/O RIGHT SHOULDER INJURY 6 WKS AGO. PT REPORTED SHE FELL FROM TRUCK WITH OUTSTRETCHED ARM. DENIOES LOC. SHE FEELS ARM NUMB AND RIGHT SHOULDER PAIN X TODAY. +2 RADIAL PULSE <3 SEC CAP REFILL. HX---ASTHMA. PATIENT STATES PAIN OF 10/10 AT THIS TIME; VSS; PATIENT POSITIONED FOR COMFORT; HOB ELEVATED; BEDRAILS UP X2; BED DOWN. ER MD MADE AWARE OF PT STATUS.
--- NOTE | 2018-05-13 15:36 | NUR ---
Patient being evaluated by DR WESLEY at bedside.
[2018-05-13] MEDS ORDERED: KETOROLAC 60 MG/2 ML VIAL IM ONE (15:40)
[2018-05-13 16:00] VITALS: BP 125/78
== END 2018-05-13 16:04 | disposition home or self-care (01) ==
LOC: MED 14:56
DX: M25.511 Pain in right shoulder (principal); R20.0 Anesthesia of skin; J45.909 Unspecified asthma, uncomplicated; Z79.899 Other long term (current) drug therapy
CPT/HCPCS: 96372; 99283; J1885

== ENCOUNTER 2018-07-25 11:03 | Emergency (ER) | payer MEDICAID ==
[~2018-07-25] VITALS: Ht 177.8 cm; Wt 99.8 kg
--- NOTE | 2018-07-25 11:13 | NUR ---
PT AMBULATED TO ER BED 12
[2018-07-25 11:20] VITALS: BP 115/67
--- NOTE | 2018-07-25 11:24 | NUR ---
38 Y/O F PRESENTS TO THE ED W/C/O BACK PAIN/SHOULDER PAIN S/P MECHANICAL FALL FROM THE BED LAST NIGHT. PT DENIES KO. PT DENIES N/V/D; AAOX4, PERRL, WITH EVEN AND STEADY GAIT; LUNGS CLEAR BL, BREATHING UNLABORED; HR EVEN AND REGULAR, BL PERIPHERAL PULSES PRESENT; PT DENIES ANY FEVER, CP, SOB, OR COUGH AT THIS TIME; PT STATES 10/10 PAIN AT THIS TIME; VSS; PATIENT POSITIONED FOR COMFORT; HOB ELEVATED; BEDRAILS UP X2; BED DOWN.
[2018-07-25] MEDS ORDERED: oxyCODONE/APAP 5/325 MG 1 TAB TAB PO ONE (11:50)
[2018-07-25] MEDS ORDERED: KETOROLAC 30 MG/ML VIAL IM ONE (11:50)
--- NOTE | 2018-07-25 12:30 | NUR ---
PT BACK FROM X-RAY AT THIS TIME.
[2018-07-25] MEDS ORDERED: MORPHINE SULFATE 4 MG/ML SYR IM ONE (13:40)
[2018-07-25 14:05] VITALS: BP 123/72
--- NOTE | 2018-07-25 14:05 | NUR ---
Patient discharged with v/s stable. Written and verbal after care instructions given and explained. Patient alert, oriented and verbalized understanding of instructions. Ambulatory with steady gait. All questions addressed prior to discharge. ID band removed. Patient advised to follow up with PMD. Rx of NORCO 5MG-325MG, VALIUM 5MG AND IBUPROFEN 600MG given. Patient educated on indication of medication including possible reaction and side effects. Opportunity to ask questions provided and answered.
== END 2018-07-25 14:05 | disposition home or self-care (01) ==
LOC: MED 11:03
DX: S30.0XXA Contusion of lower back and pelvis, initial encounter (principal); S40.011A Contusion of right shoulder, initial encounter; J45.909 Unspecified asthma, uncomplicated; F41.9 Anxiety disorder, unspecified; Z79.899 Other long term (current) drug therapy; W01.0XXA Fall on same level from slipping, tripping and stumbling without subsequent striking against object, initial encounter; Y93.89 Activity, other specified; Y92.89 Other specified places as the place of occurrence of the external cause; Y99.8 Other external cause status
CPT/HCPCS: 72100; 73030; 96372; 99283; J1885; J2270

== ENCOUNTER 2018-09-20 21:02 | Emergency (ER) | payer MEDICAID ==
[~2018-09-20] VITALS: Ht 180.3 cm; Wt 113.4 kg
[2018-09-20 21:08] VITALS: BP 137/83
--- NOTE | 2018-09-20 21:15 | NUR ---
TO LOBBY A/W BED, AMB, VSS, ERMD NOTED , EKG DONE, NSR,
--- NOTE | 2018-09-20 21:33 | NUR ---
PT AMBULATED TO BED 6
--- NOTE | 2018-09-20 21:40 | NUR ---
X-Ray at bedside.
--- NOTE | 2018-09-20 21:46 | NUR ---
38 YO F BIB SELF AND GIRLFRIEND PRESENTS TO THE ED C/O 9/10 CHEST PAIN IN THE EPIGASTRIC REGION. PT STATES PAIN IS SHARP AND RADIATES DOWN INTO ABD AND INTO GROIN. PT ALSO C/O SOB AND DIFFICULTY BREATHING WHILE SLEEPING. GIRLFRIEND STATES THAT SHE HEARS PT "GASPING FOR AIR" WHILE SLEEPING. PT ADMITS TO HX: ANXIETY, DEPRESSION, SCHIZOPHRENIA, AND ALCOHOLISM. PT STATES SHE HAS NOT TAKEN ANY OF HER PSYCH MEDS FOR SEVERAL WEEKS D/T CHANGING INSURANCE. -- EKG DONE. ERMD MADE AWARE. SKIN IS PINK, WARM, DRY. DENIES NV, DIZZINESS. -- BREATHING EVEN/UNLABORED. SP02: 98%. CHEST RISE EQUAL, SYMETRICAL. NO S/SX RESP DISTRESS. -- PMH: ASTHMA -- RX: INHALER NEEDED PT CHANGED INTO GOWN AND POSITIONED FOR COMFORT. HOB ELEVATED. SIDE RAIL UP X 1. BED IN LOWEST POSITION. VSS. NO APPARENT DISTRESS AT THIS TIME.
--- NOTE | 2018-09-20 22:15 | NUR ---
PT IS C/O FEELING SOB. SP02: 98% RR: 18. BREATHING APPPEARS EVEN, UNLABORED. NO NASAL FLARING, INTERCOSTAL RETRACTIONS NOTED. FIO2 PROVIDED FOR COMFORT AT 2 LPM VIA NC.
[2018-09-20] MEDS ORDERED: NACL 0.9% 1,000 ML IV ONE (22:30)
[2018-09-20 22:50] LABS: BASOPHILS # (AUTO) 0.1 K/uL (0.00-0.22); BASOPHILS % (AUTO) 1.6 % (0.0-2.0); EOSINOPHILS # (AUTO) 0.1 K/uL (0-0.4); EOSINOPHILS % (AUTO) 1.7 % (0.0-4.0); HEMATOCRIT 37.2 % (36-48); HEMOGLOBIN 12.3 g/dL (12.0-16.0); LYMPHOCYTES # (AUTO) 1.5 K/uL (2.5-16.5); MEAN CORPUSCULAR HEMOGLOBIN 31 pg (27-31); MEAN CORPUSCULAR HGB CONC 33 g/dL (33-37); MEAN CORPUSCULAR VOLUME 93.8 fL (80-94); MONOCYTES # (AUTO) 0.4 K/uL (0.8-1.0); MONOCYTES % (AUTO) 8.6 % (1.7-9.3); NEUTROPHILS # (AUTO) 2.3 K/uL (1.8-7.7); NEUTROPHILS % (AUTO) 53.1 % (42.2-75.2); PLATELET COUNT (AUTO) 243 K/uL (140-450); RED BLOOD CELL COUNT(AUTO) 3.97 MIL/uL (4.20-5.40); RED CELL DISTRIBUTION WIDTH 15.7 % (11.6-13.7); WHITE BLOOD COUNT (AUTO) 4.4 K/uL (4.8-10.8)
[2018-09-20 22:59] LABS: ANION GAP 16.2 (8-16); CARBON DIOXIDE 24.4 mmol/L (21-32); CREATININE 0.7 mg/dL (0.6-1.3); POTASSIUM 3.6 mmol/L (3.5-5.1)
[2018-09-20 23:04] LABS: ALBUMIN 3.6 g/dL (3.4-5.0); TOTAL BILIRUBIN 0.5 mg/dL (0.0-1.0)
--- NOTE | 2018-09-20 23:27 | NUR ---
DR. BARRY AT BEDSIDE
[2018-09-20] MEDS ORDERED: ALUMINUM HYD/MAG/SIMETHICONE 30 ML UDC PO ONE (23:35)
[2018-09-20] MEDS ORDERED: DICYCLOMINE HCL LIQUID 20 MG, ALUMINUM HYD/MAG/SIMETHICONE 30 ML, LIDOCAINE VISCOUS 2% ... PO ONE ×3 (23:40)
[2018-09-21] LABS: APPEARANCE,URINE CLEAR (CLEAR); BILIRUBIN,URINE NEGATIVE (NEGATIVE); BLOOD, URINE 1+ (NEGATIVE); COLOR,URINE YELLOW (YELLOW); LEUKOCYTE ESTERASE ,URINE NEGATIVE (NEGATIVE); NITRITE, URINE NEGATIVE (NEGATIVE); UGLUCOSE NEGATIVE (NEGATIVE)
[2018-09-21 00:09] LABS: RBC,URINE 0-5 /HPF (0-5); WBC,URINE 0-5 /HPF (0-5)
[2018-09-21] MEDS ORDERED: KETOROLAC 15 MG/ML VIAL IVP ONE (01:00)
--- NOTE | 2018-09-21 01:00 | NUR ---
Patient appears to be resting comfortably in bed. Vital Signs within normal limits. Respirations even and unlabored. Pt reports GI cocktail only slightly effective and states she still has chest pain. ERMD made aware. New orders received.
[2018-09-21] MEDS ORDERED: MORPHINE SULFATE 4 MG/ML SYR IVP ONE (02:20)
--- NOTE | 2018-09-21 02:25 | NUR ---
Patient appears to be resting comfortably in bed. Vital Signs within normal limits. Respirations even and unlabored. Pt reports Toradol was ineffective and is still having chest pain. ERMD made aware. New orders received.
--- NOTE | 2018-09-21 03:05 | NUR ---
US AT BEDSIDE.
[2018-09-21 04:10] VITALS: BP 119/77
--- NOTE | 2018-09-21 04:10 | NUR ---
Patient discharged with v/s stable. Written and verbal after care instructions given and explained. Patient alert, oriented and verbalized understanding of instructions. Ambulatory with steady gait. All questions addressed prior to discharge. ID band removed. Patient advised to follow up with PMD. Rx of RANITIDINE, CIPRO, AND TYLENOL given. Patient educated on indication of medication including possible reaction and side effects. Opportunity to ask questions provided and answered.
== END 2018-09-21 04:10 | disposition home or self-care (01) ==
LOC: MED 21:02
DX: K29.70 Gastritis, unspecified, without bleeding (principal); K59.00 Constipation, unspecified; M54.5 Low back pain; J45.909 Unspecified asthma, uncomplicated; Z79.899 Other long term (current) drug therapy; Z79.1 Long term (current) use of non-steroidal anti-inflammatories (NSAID)
CPT/HCPCS: 36415; 71045; 76705; 80053; 81001; 81025; 83690; 84484; 85025; 87086; 93005; 96361; 96374; 96375; 99284; J1885; J2270; J7030; Q0092

== ENCOUNTER 2019-03-11 12:20 | Emergency (ER) | payer MEDICAID, OTHER ==
[~2019-03-11] VITALS: Ht 180.3 cm; Wt 91.6 kg
[2019-03-11 12:30] VITALS: BP 129/79
[2019-03-11] MEDS ORDERED: FLUO10CA21 PO (12:30)
[2019-03-11] MEDS ORDERED: NACL 0.9% 1,000 ML IV ONE (13:00)
[2019-03-11 13:19] LABS: BASOPHILS % (AUTO) 1.2 % (0.0-2.0); EOSINOPHILS % (AUTO) 0.7 % (0.0-4.0); HEMOGLOBIN 12.3 g/dL (12.0-16.0); LYMPHOCYTES # (AUTO) 1.5 K/uL (2.5-16.5); LYMPHOCYTES % (AUTO) 40.5 % (20.5-51.1); MEAN CORPUSCULAR HEMOGLOBIN 32 pg (27-31); MEAN CORPUSCULAR HGB CONC 32 g/dL (33-37); MEAN CORPUSCULAR VOLUME 99.3 fL (80-94); MONOCYTES # (AUTO) 0.3 K/uL (0.8-1.0); MONOCYTES % (AUTO) 8.4 % (1.7-9.3); NEUTROPHILS # (AUTO) 1.8 K/uL (1.8-7.7); NEUTROPHILS % (AUTO) 49.2 % (42.2-75.2); PLATELET COUNT (AUTO) 274 K/uL (140-450); RED BLOOD CELL COUNT(AUTO) 3.83 MIL/uL (4.20-5.40); RED CELL DISTRIBUTION WIDTH 16.3 % (11.6-13.7); WHITE BLOOD COUNT (AUTO) 3.6 K/uL (4.8-10.8)
[2019-03-11] MEDS ORDERED: KETOROLAC 30 MG/ML VIAL IVP ONE (13:45)
[2019-03-11 14:09] LABS: ANION GAP 14.9 (8-16); CARBON DIOXIDE 26.3 mmol/L (21-32); CREATININE 0.8 mg/dL (0.6-1.3); POTASSIUM 4.2 mmol/L (3.5-5.1)
[2019-03-11 14:15] LABS: ALBUMIN 3.4 g/dL (3.4-5.0); TOTAL BILIRUBIN 0.3 mg/dL (0.0-1.0)
[2019-03-11] MEDS ORDERED: METOCLOPRAMIDE 10 MG/2 ML INJ VIAL IVP ONE (14:45)
[2019-03-11 15:44] VITALS: BP 125/81
== END 2019-03-11 15:44 | disposition home or self-care (01) ==
LOC: MED 12:20
DX: A08.4 Viral intestinal infection, unspecified (principal); J45.909 Unspecified asthma, uncomplicated; Z79.899 Other long term (current) drug therapy
CPT/HCPCS: 36415; 74176; 80053; 81002; 81025; 85025; 96361; 96374; 96375; 99284; J1885; J2765; J7030

== ENCOUNTER 2019-08-03 16:27 | Emergency (ER) | payer OTHER ==
[~2019-08-03] VITALS: Ht 175.3 cm; Wt 87.1 kg
[~2019-08-03 16:27] MED LIST changes: -BISA5ECT45 PO; -CONSTULOSE; -DOCU-299 PO; +FLUO10CA21 PO; -HYDR-5122 PO; -IBUP-2213 PO; -LACT10SO1 PO; -NALTREXONE 50 MG TABLET; -OMEP20TC12 PO; -ONDA4TAB PO; -SIME80CT27 PO; -ZONISAMIDE 100 MG CAPSULE
[2019-08-03 16:47] VITALS: BP 110/66
--- NOTE | 2019-08-03 17:13 | NUR ---
PT SEEN LOOKING AT CELLPHONE IN LOBBY, NO SIGNS OF DISTRESS.
--- NOTE | 2019-08-03 17:36 | NUR ---
PT AMBULATED TO BED 02
--- NOTE | 2019-08-03 17:41 | NUR ---
ERMD AT BEDSIDE
[2019-08-03] MEDS ORDERED: KETOROLAC 30 MG/ML VIAL IM ONE (17:50)
--- NOTE | 2019-08-03 17:54 | NUR ---
39 Y/O F C/C PAIN DURING BREATHING. PAIN /, SHARP, RADIATING TO RLE, DENIES TRAUMA. PT NKA. HX ASTHMA,BIPOLAR. RX ALBUTEROL,PROZAC. NO N/V/D. ROM WDL. SIDE RAIL X1.
[2019-08-03 18:54] LABS: APPEARANCE,URINE CLEAR (CLEAR); BILIRUBIN,URINE NEGATIVE (NEGATIVE); BLOOD, URINE NEGATIVE (NEGATIVE); COLOR,URINE YELLOW (YELLOW); LEUKOCYTE ESTERASE ,URINE NEGATIVE (NEGATIVE); NITRITE, URINE NEGATIVE (NEGATIVE); UGLUCOSE NEGATIVE (NEGATIVE)
--- NOTE | 2019-08-03 19:17 | NUR ---
REPORT GIVEN TO YESICA LEE FOR CONTINUITY OF CARE
--- NOTE | 2019-08-03 19:43 | NUR ---
DX - [facility]. ACI WITH RX GIVEN TO PT. PT SAID THAT THEY UNDERSTOOD THE INSTRUCTIONS. PT ACCOMPAMIES BY FRIEND. LEFT WITH STEADY GAIT.
[2019-08-03 19:47] VITALS: BP 110/66
== END 2019-08-03 19:43 | disposition home or self-care (01) ==
LOC: MED 16:27
DX: M54.9 Dorsalgia, unspecified (principal); J45.909 Unspecified asthma, uncomplicated; Z79.899 Other long term (current) drug therapy
CPT/HCPCS: 81003; 96372; 99283; J1885

== ENCOUNTER 2019-08-23 12:27 | Emergency (ER) | payer OTHER | END 2019-08-23 13:18 | disposition left against medical advice (07) | LOC: MED 12:27 | DX: M79.673 Pain in unspecified foot (principal); Z53.21 Procedure and treatment not carried out due to patient leaving prior to being seen by health care provider ==

== ENCOUNTER 2020-05-12 03:50 | Inpatient (IN) | payer OTHER, SELFPAY ==
[~2020-05-12] VITALS: Ht 180.3 cm; Wt 78.0 kg
[2020-05-12 03:55] VITALS: BP 131/80
--- NOTE | 2020-05-12 03:59 | NUR ---
TO BED # 04 AMBULATORY
--- NOTE | 2020-05-12 04:01 | NUR ---
PT AMBULATED TO ED RESTROOM WITH STEADY GAIT
--- NOTE | 2020-05-12 04:04 | NUR ---
PT AMBULATED BACK TO ED BED 4 FROM ED RESTROOM WITH STEADY GAIT
--- NOTE | 2020-05-12 04:05 | NUR ---
40 Y/O FEMALE PRESENTED TO THE ED C/O 01/19 RLQ ABD PAIN X4 HRS THAT RADIATES TO HER BACK. PT STATES IT IS SHARP AND STABBING. PT DENIES TRAUMA OR INJURY. PT DENIES N/V. PT DENIES FEVER. PT DENIES TAKING ANY PAIN MEDICATION TODAY. ABD IS TENDER TO PALPATION. GUARDING IS PRESENT. NO LUMPS OR MASSES FELT ON PALPATION. PMH: CONSTIPATION, ASTHMA, MAJOR DEPRESSION, BIOPOLAR DISORDER. ALLERGIES: LAMICTAL
--- NOTE | 2020-05-12 04:12 | NUR ---
RAYSA WESLEY AT BEDSIDE FOR MEDICAL EVALUATION
[2020-05-12] MEDS ORDERED: KETOROLAC 30 MG/ML VIAL IVP ONE (04:15)
--- NOTE | 2020-05-12 04:25 | NUR ---
blood labs collected
[2020-05-12] MEDS: NACL 0.9% 1,000 ML IV SCH ×5 (04:39→22:06)
--- NOTE | 2020-05-12 04:44 | NUR ---
blood labs walked over to lab
--- NOTE | 2020-05-12 04:48 | NUR ---
PT WAS TAKEN TO CT VIA W/C
--- NOTE | 2020-05-12 04:55 | NUR ---
PT RETURNED FROM CT VIA W/C
--- NOTE | 2020-05-12 04:56 | NUR ---
PT AMBULATED TO ED RESTROOM WITH STEADY GAIT
--- NOTE | 2020-05-12 04:58 | NUR ---
PT ABMULATED FROM ED RESTROOM TO ED BED 4 WITH STEADY GAIT
[2020-05-12 05:02] LABS: BASOPHILS # (AUTO) 0.1 K/uL (0.00-0.22); BASOPHILS % (AUTO) 2.7 % (0.0-2.0); HEMOGLOBIN 12.7 g/dL (12.0-16.0); LYMPHOCYTES # (AUTO) 0.9 K/uL (2.5-16.5); LYMPHOCYTES % (AUTO) 19.5 % (20.5-51.1); MEAN CORPUSCULAR HEMOGLOBIN 29 pg (27-31); MEAN CORPUSCULAR HGB CONC 33 g/dL (33-37); MONOCYTES # (AUTO) 0.4 K/uL (0.8-1.0); MONOCYTES % (AUTO) 9.1 % (1.7-9.3); NEUTROPHILS # (AUTO) 3.3 K/uL (1.8-7.7); NEUTROPHILS % (AUTO) 67.7 % (42.2-75.2); PLATELET COUNT (AUTO) 228 K/uL (140-450); RED BLOOD CELL COUNT(AUTO) 4.34 MIL/uL (4.20-5.40); RED CELL DISTRIBUTION WIDTH 14.7 % (11.6-13.7); WHITE BLOOD COUNT (AUTO) 4.8 K/uL (4.8-10.8)
[2020-05-12 05:15] LABS: ALBUMIN 3.7 g/dL (3.4-5.0); ANION GAP 13.8 (8-16); CARBON DIOXIDE 24.6 mmol/L (21-32); CREATININE 0.8 mg/dL (0.6-1.3); POTASSIUM 3.4 mmol/L (3.5-5.1); TOTAL BILIRUBIN 0.9 mg/dL (0.0-1.0)
--- NOTE | 2020-05-12 05:50 | NUR ---
PT IS LAYING DOWN WITH HOB IN SEMI FOWLERS. PT IS ON HER PHONE. NO ACUTE DISTRESS NOTED AT THIS TIME. VISIBLE RISE AND FALL OF CHEST. BED IS LOCKED AND IN LOWEST POSITION. SIDE RAILS X1. WILL CONTINUE TO MONITOR.
--- NOTE | 2020-05-12 06:12 | NUR ---
urine handed over to Sandra angel on the ED unit
--- NOTE | 2020-05-12 06:17 | NUR ---
BELONGINGS LIST COMPLETED BY ROSA IZQUIERDO
[2020-05-12] MEDS ORDERED: FLUO40CA6 PO (06:18)
[2020-05-12] MEDS ORDERED: ARIP5TAB8 PO (06:18)
--- NOTE | 2020-05-12 06:19 | NUR ---
MED REC COMPLETED
--- NOTE | 2020-05-12 06:26 | NUR ---
RUIZ PINEDA COLLECTED AND WALKED OVER TO LAB
[2020-05-12 06:31] LABS: APPEARANCE,URINE CLEAR (CLEAR); BILIRUBIN,URINE NEGATIVE (NEGATIVE); BLOOD, URINE NEGATIVE (NEGATIVE); COLOR,URINE YELLOW (YELLOW); LEUKOCYTE ESTERASE ,URINE NEGATIVE (NEGATIVE); NITRITE, URINE NEGATIVE (NEGATIVE); UGLUCOSE NEGATIVE (NEGATIVE)
--- NOTE | 2020-05-12 06:58 | NUR ---
RAYSA WESLEY MADE AWARE OF LOW K @3.4
[2020-05-12] MEDS ORDERED: MORPHINE SULFATE 4 MG/ML SYR IVP PRN (07:00)
[2020-05-12] MEDS ORDERED: ACETAMINOPHEN 325 MG TAB PO PRN (07:00)
--- NOTE | 2020-05-12 07:16 | NUR ---
REPORT GIVEN TO ROSA BALL FOR TRANSFER OF CARE.
--- NOTE | 2020-05-12 08:31 | NUR ---
RECEIVED REPORT FROM ER NURSE SHYAM PATIENT IS AAOX4, ON ROOM AIR, NPO, AMBULATORY, SKIN INTACT IV SITES INTACT AND PATENT ON LEFT AC, STARTED ON SODIUM CHLORIDE 0.9% AT 100 MLS/HR AND ROCEPHIN. TRANSPORTED VIA WHEELCHAIR, ORIENTED TO ROOM, SAFETY MEASURES IN PLACE AND CALL LIGHT WITHIN REACH. WILL CONTINUE TO MONITOR.
[2020-05-12] MEDS ORDERED: cefTRIAXone 1,000 MG VIAL ONE (08:35)
--- NOTE | 2020-05-12 09:25 | NUR ---
MRSA SWAB OF THE NARES DONE AND SENT TO LAB.
--- NOTE | 2020-05-12 10:08 | NUR ---
Patient will be admitted to care of DR FLOR. Admited to [facility]. Will go to [id number]. Belongings list completed. Report to ROSA BALL.
--- NOTE | 2020-05-12 10:56 | NUR ---
SOCIAL WORK NOTE: [facility] Patient: Ailyn Velazquez : 1980 Age/Sex: 40/F Unit#: [id number] Room/Bed: 126/B User: Donald HO Date: 05/12/20 10:55 Type: CM Discharge Plan Assessment Patient's Orientation Person Situation Place Time Information Provided By PATIENT Comments SW CONTACTED PATIENT TELEPHONICALLY WITH EDIPHONE OPERATOR DIONE [id number]. PATIENT REFUSED TO COMPLETE ASSESSMENT AND DISCONNECTED PHONECALL 3X. Department Clerk, Realtionship and Phone Number DIONISIO GIRON [facility] [phone] [facility] Power of River Driver No Does Patient Have a POLST No
--- NOTE | 2020-05-12 11:00 | NUR ---
PATIENT POTASSIUM LEVEL 3.4 DR MOJICA AWARE AND WAITING FOR ORDERS.
--- NOTE | 2020-05-12 12:00 | NUR ---
MADE ROUNDS AT THIS TIME PATIENT IS SLEEPING NO DISTRESS NOTED AND DENIES PAIN.
--- NOTE | 2020-05-12 13:00 | NUR ---
MEDICATION DUE GIVEN AT THIS TIME.
[2020-05-12] MEDS: metroNIDAZOLE 500 MG/NS PREMIX 100 ML IV SCH ×2 (13:28→21:32)
--- NOTE | 2020-05-12 13:37 | NUR ---
DISCHARGE PLANNING: THIS IS A 40 Y/O FEMALE PATIENT FROM HOME, WHO CAME IN DUE TO RLO ABDOMINAL PAIN. PAST MEDICAL HISTORY INCLUDE ASTHMA. INITIAL DIAGNOSIS OF ABDOMINAL PAIN. CURRENT LABS INCLUDE WBC 4.8, H/H 12.7/39.0, NA/K 138/3.4, BUN/CREA 11/0.8. COVID NEGATIVE. CT ABD/PELVIS SHOWED NO BOWEL OBSTRUCTION, POSSIBLE MILD COLITIS. ON FLAGYL AND ROCEPHIN. NOT SEEN BY ATTENDING YET. DC PLAN PENDING ON PATIENT'S RESPONSE TO TREATMENT. Addendum: 05/13/20 at 1147 by Paloma Shepherd CM SEEN BY DR. LOONEY - DC PLAN IF TOLERATES PO DIET, PASSING GAS AND HAVING AT LEAST A BM. STILL ON FLAGYL AND ROCEPHIN. WILL FOLLOW UP DC PLAN WITH ATTENDING.
[2020-05-12 13:47] VITALS: BP 120/68
--- NOTE | 2020-05-12 15:48 | NUR ---
PATIENT HAS BEEN SCREENED AND CATEGORIZED MODERATE NUTRITION RISK. PATIENT WILL BE SEEN WITHIN 3-5 DAYS OF ADMISSION. 05/14/20 05/16/[address]
[2020-05-12 16:00] VITALS: BP 122/73
[2020-05-12] MEDS ORDERED: POTASSIUM CHLORIDE 40 MEQ, LIDOCAINE MPF 1% 25 MG in NACL 0.9% 250 ML IV SCH (16:30)
[2020-05-12] MEDS ORDERED: MAGNESIUM HYDROXIDE 2400 MG/30 ML UDC PO PRN (18:45)
--- NOTE | 2020-05-12 19:29 | NUR ---
ENDORSED TO NIGHT NURSE FOR CONTINUITY OF CARE. PT IS STABLE
--- NOTE | 2020-05-12 19:30 | NUR ---
RECD. RESTING IN BED, AWAKE, A/OX4. RESPIRATION EVEN AND UNLABORED. K-RIDER INFUSING AT 68 ML/HR, LEFT AC G20. INDEPENDENT, AMBULATORY TO THE BR. SKIN WARM TO TOUCH. NOTHING BY MOUTH PER MD ORDER TO REST BOWELS. DENIES ABDOMINAL PAIN 0/10.
[2020-05-12 20:25] VITALS: BP 111/65
[2020-05-12] MEDS: DOCUSATE SODIUM 250 MG GELCAP PO SCH (21:00)
--- NOTE | 2020-05-12 21:00 | NUR ---
PT RESTING COMFORTABLY IN BED. DENIES ANY PAIN OR DISCOMFORT. PT IS AAOX4. ABLE TO MAKE NEEDS KNOWN. PARKER MEDS GIVEN PER ORDER. MED EDUCATION GIVEN. PT VERBALIZED UNDERSTANDING. POC DISCUSSED WITH PT. ALL NEEDS MET. CALL LIGHT IS WITHIN REACH. WILL CONTINUE TO MONITOR.
--- NOTE | 2020-05-13 | NUR ---
ROUNDS MADE. VITAL SIGNS ARE STABLE. CALL LIGHT IS WITHIN REACH. WILL CONTINUE TO MONITOR.
--- NOTE | 2020-05-13 02:00 | NUR ---
ROUNDS MADE. PT IS SLEEPING COMFORTABLY IN BED WITH EYES CLOSED. CHEST RISE AND FALL NOTED. ALL SAFETY MEASURES ARE IN PLACE. CALL LIGHT IS WITHIN REACH. WILL CONTINUE TO MONITOR.
[2020-05-13 04:30] VITALS: BP 123/76
[2020-05-13] MEDS: metroNIDAZOLE 500 MG/NS PREMIX 100 ML IV SCH ×2 (04:52→13:20)
[2020-05-13] MEDS: NACL 0.9% 1,000 ML IV SCH ×2 (04:52→13:22)
--- NOTE | 2020-05-13 05:01 | NUR ---
PT WITH 2 SMALL BM PASSING GAS. DENIES ABD PAIN. PARKER MEDICATION GIVEN. POC REVIEWED WITH PT. SAFETY MEASURES ARE IN PLACE. WILL CONTINUE TO MONITOR.
[2020-05-13 06:18] LABS: EOSINOPHILS # (AUTO) 0.1 K/uL (0-0.4); EOSINOPHILS % (AUTO) 1.8 % (0.0-4.0); HEMATOCRIT 36.8 % (36-48); HEMOGLOBIN 11.9 g/dL (12.0-16.0); LYMPHOCYTES % (AUTO) 24.9 % (20.5-51.1); MEAN CORPUSCULAR HEMOGLOBIN 29 pg (27-31); MEAN CORPUSCULAR HGB CONC 33 g/dL (33-37); MEAN CORPUSCULAR VOLUME 90.6 fL (80-94); MONOCYTES # (AUTO) 0.4 K/uL (0.8-1.0); NEUTROPHILS # (AUTO) 2.5 K/uL (1.8-7.7); NEUTROPHILS % (AUTO) 62.3 % (42.2-75.2); PLATELET COUNT (AUTO) 179 K/uL (140-450); RED BLOOD CELL COUNT(AUTO) 4.06 MIL/uL (4.20-5.40); RED CELL DISTRIBUTION WIDTH 14.7 % (11.6-13.7)
[2020-05-13 06:46] LABS: ALBUMIN 3.2 g/dL (3.4-5.0); ANION GAP 14.7 (8-16); CARBON DIOXIDE 22.6 mmol/L (21-32); CREATININE 0.8 mg/dL (0.6-1.3); POTASSIUM 4.3 mmol/L (3.5-5.1); TOTAL BILIRUBIN 1.1 mg/dL (0.0-1.0)
[2020-05-13 08:00] VITALS: BP 102/62
--- NOTE | 2020-05-13 08:00 | NUR ---
RECEIVED REPORT FROM FRAME MAKER FOR CONTINUITY OF CARE. PATIENT ALERT AWAKE ORIENTED X4, NOT IN ANY DISTRESS NOTED NOTED. DENIES PAIN AT THIS TIME. WITH IVF ON GOING AND INFUSING WELL. NEEDS ATTENDED, WILL CONTINUE TO MONITOR.
[2020-05-13] MEDS: DOCUSATE SODIUM 250 MG GELCAP PO SCH (08:32)
[2020-05-13] MEDS ORDERED: SENNA 8.6 MG TAB PO SCH (09:00)
[2020-05-13] MEDS ORDERED: POLYETHYLENE GLYCOL 17 GM/PKT PO SCH (09:00)
--- NOTE | 2020-05-13 10:00 | NUR ---
PATIENT RESTING IN BED. DENIES PAIN.
--- NOTE | 2020-05-13 12:30 | NUR ---
SEEN BY DR. ESPINOZA WITH ORDER TO DC ONCE SHE TOLERATE THE DIET.
[2020-05-13] MEDS ORDERED: POLY17PD46 PO (14:51)
[2020-05-13] MEDS ORDERED: [UNRECOGNIZED DRUG - CODE] PO (14:51)
--- NOTE | 2020-05-13 16:30 | NUR ---
PATIENT TOLERATED DIET, NO NAUSEA AND VOMITING, NO ABDOMINAL PAIN. HAD 2 BM ALREADY. WILL CONTINUE TO MONITOR.
--- NOTE | 2020-05-13 17:35 | NUR ---
PATIENT IV REMOVED. DC PATIENT TO HOME AMBULATORY. WITH DC INSTRUCTION GIVEN AND VERBALIZED UNDERSTANDING. IN STABLE CONDITION.
== END 2020-05-13 17:30 | disposition home or self-care (01) | DRG 254 ==
LOC: MED 03:50 → MMU 07:03 → MTU 07:58 → MMU 08:05
PROVIDERS: ADMIT Hospitalist; ATTEND Hospitalist
DX: K59.09 Other constipation (principal); E87.6 Hypokalemia; J45.909 Unspecified asthma, uncomplicated; F41.9 Anxiety disorder, unspecified; F32.9 Major depressive disorder, single episode, unspecified; Z20.828 Contact with and (suspected) exposure to other viral communicable diseases; Z88.8 Allergy status to other drugs, medicaments and biological substances
CPT/HCPCS: 36415; 80053; 81003; 83690; 85025; 87081; 96365; 96367; 96375; 99291; J0696; J1885; J2001; J3480; J3490; J7030; J7060